=== PATIENT | male | born 1975 | race Caucasian/White ===

== ENCOUNTER → 2016-08-23 | Day surgery (SDC) | payer OTHER ==
[~2016-08-23] VITALS: Ht 172.7 cm; Wt 104.9 kg
[~2016-08-23] MED LIST: NORCO 5-325 TA1 EACH PO
--- NOTE | ~2016-08-23 | OR ---
PATIENT'S NAME: AFUA RIVAS [facility] AGE: 41 Y [address] ROOM: [place], [place] [address] LOCATION: [facility] [place] ADMIT DATE: 08/23/2016 OR/Procedure Report DISCHARGE DATE: FAMILY PHYSICIAN: Malou Nelson DO ATTENDING PHYSICIAN: Amado Garcia SURGEON: Amado Garcia MD ONLINE RETAILER: DATE OF PROCEDURE: 08/23/2016 PREOPERATIVE DIAGNOSES: 1. Right ureteropelvic junction stone (7.[address] 2. Left ureteropelvic junction obstruction. POSTOPERATIVE DIAGNOSES: 1. Right ureteropelvic junction stone (7.[address] 2. Left ureteropelvic junction obstruction. PROCEDURES PERFORMED: 1. Cystoscopy and stone manipulation. 2. Left retrograde. 3. Left ureteral stent placement. ANESTHESIA: Sedation. INDICATION: This is a 41-year-old gentleman with a past history of stone disease. He has undergone an intervention elsewhere. He cannot remember the details, but when he experienced the onset of severe left flank pain, nausea, and vomiting early this a.m., he had an idea of what it was. He was evaluated by Dr. Nelson in the emergency room in [place]. CT scan revealed a 7.2 mm stone in the left UPJ. With his ongoing pain symptoms, and based on the size and location of the stone, he was sent down for intervention. I reviewed his CT scan. He has some atrophic changes on the left side and some chronic hydronephrosis. It gives the impression of a UPJ obstruction. I suspect that is his main risk factor. The right side is unremarkable. We will treat the stone acutely. He may, considering his young age and overall good health, want to consider something for his UPJ obstruction. DESCRIPTION OF PROCEDURE: Having obtained his informed consent, the patient was taken to the operating room. He was prepped and draped sterilely and in lithotomy position. IV sedation was administered. A 21-Mongolian cystoscope was assembled and guided into the urethra. The course of the urethra was unremarkable. The bladder itself demonstrated no tumors, stones, or foreign bodies. Bladder examination was confirmed with a 70-degree lens. PATIENT'S NAME: AFUA RIVAS [facility] AGE: 41 Y [address] ROOM: [place], [place] [address] LOCATION: [facility] ADMIT DATE: 08/23/2016 OR/Procedure Report DISCHARGE DATE: FAMILY PHYSICIAN: Malou Nelson DO ATTENDING PHYSICIAN: Amado Garcia Under fluoroscopy, I could see the density as it was appreciated on the CT scan. I placed the patient in a Trendelenburg position. I passed an open- ended catheter to the level of the stone. Using saline irrigation, I irrigated the stone back into the renal pelvis. To outline the UPJ, I then went ahead with a retrograde study. He had a short, narrow segment. The remainder of the ureter was unremarkable. The left collecting system was consistent with chronic obstruction. The calices were clubbed. These were not acute changes secondary to the stone. The stone simply got hung up in his narrowed UPJ. A guidewire was passed. Over that, I passed a 4.8 Multi-Link stent. We had a nice level of placement cystoscopically and fluoroscopically. The patient tolerated the procedure well. Blood loss was negligible. No specimens were sent. The patient returned to the outpatient recovery area, awake and in stable condition. We will make arrangements for elective lithotripsy. We will then discuss options for his UPJ further. I suspect, based on the radiographic impression from his CT scan and his retrograde, that we should be able to proceed with retrograde endopyelotomy. He would also be a candidate for an antegrade endopyelotomy and/or a dismembered pyeloplasty. AMADO GARCIA MD [facility]/lemuell /[id number] CC: Malou Nelson DO d: 08/23/16 1200 t: 08/31/16 1430, OPERATIVE SUMMARY
== END | disposition disaster alternative care site (69) ==
LOC: GSDC 04:56
PROC: 0T778DZ Dilation of Left Ureter with Intraluminal Device, Via Natural or Artificial Opening Endoscopic (ICD-10-PCS; principal; 2016-08-23)
PROC: BT1FZZZ Fluoroscopy of Left Kidney, Ureter and Bladder (ICD-10-PCS; 2016-08-23)
DX: N13.2 Hydronephrosis with renal and ureteral calculous obstruction (principal); Z88.0 Allergy status to penicillin; Z88.1 Allergy status to other antibiotic agents
CPT/HCPCS: C1769; C2617; J1100; J1956; J2250; J2405; J7120

== ENCOUNTER → 2016-08-29 | Day surgery (SDC) | payer OTHER ==
[~2016-08-29] VITALS: Ht 172.7 cm; Wt 104.2 kg
--- NOTE | ~2016-08-29 | OR ---
PATIENT'S NAME: AFUA RIVAS [facility] AGE: 41 Y [address] ROOM: [place] [address] LOCATION: [facility] [place] ADMIT DATE: 08/29/2016 OR/Procedure Report DISCHARGE DATE: FAMILY PHYSICIAN: Malou Nelson DO ATTENDING PHYSICIAN: Amado Garcia SURGEON: Amado Garcia MD HOOKER LASTER: DATE OF PROCEDURE: 08/29/2016 PREOPERATIVE DIAGNOSIS: Left proximal ureteral calculus, status post stone manipulation and stent placement. POSTOPERATIVE DIAGNOSIS: Left proximal ureteral calculus, status post stone manipulation and stent placement. PROCEDURES PERFORMED: 1. Left extracorporeal shock wave lithotripsy. 2. Cystoscopy and stent removal. ANESTHESIA: Sedation. INDICATION: This is a 41-year-old young man with a past history of stone disease. He has required prior intervention elsewhere. He had presented acutely approximately one week ago. CT revealed a 7 mm stone in the left UPJ. He underwent acute intervention with stone manipulation and stent placement. I felt that he may have some chronic changes on the left side consistent with UPJ obstruction. In any event, he has done well in the interim. He presents at this time for elective lithotripsy. DESCRIPTION OF PROCEDURE: Having obtained his informed consent, the patient was taken to the operating room. He was placed on the lithotripsy table. The stone was brought into the second focal point ellipsoid, and fragmentation was begun. We started at 14 kV and worked up to a maximum of 18 kV. The stone appeared soft, and after 1500 impulses, we could appreciate no significant fragments or debris. He was then prepped and draped. Cystoscopy was undertaken. The stent was grasped and extracted. The patient tolerated the procedures well. Blood loss was negligible. No specimens were sent. The patient returned to the outpatient recovery area, awake and in stable condition. We are going to make arrangements for a followup ultrasound in 4 to 6 weeks. We will then make a decision regarding any functional studies or any further intervention for his presumed underlying UPJ obstruction. PATIENT'S NAME: AFUA RIVAS [facility] AGE: 41 Y [address] ROOM: [place] [address] LOCATION: [facility] [place] ADMIT DATE: 08/29/2016 OR/Procedure Report DISCHARGE DATE: FAMILY PHYSICIAN: Malou Nelson DO ATTENDING PHYSICIAN: Amado Garcia AMADO GARCIA MD [facility]/modl /[id number] CC: Malou Nelson DO d: 08/29/16 1523 t: 09/12/16 1013, OPERATIVE SUMMARY
== END ==
LOC: GSDC 07:00
PROC: 0TF4XZZ Fragmentation in Left Kidney Pelvis, External Approach (ICD-10-PCS; principal; 2016-08-29)
PROC: 0TP98DZ Removal of Intraluminal Device from Ureter, Via Natural or Artificial Opening Endoscopic (ICD-10-PCS; 2016-08-29)
DX: N20.1 Calculus of ureter (principal); Z88.0 Allergy status to penicillin; Z88.1 Allergy status to other antibiotic agents
CPT/HCPCS: J1100; J1956; J2001; J2405; J7120